=== PATIENT | male | born 1990 | race American Indian/Alaskan Native ===

== ENCOUNTER 2020-12-28 16:46 | Emergency (ER) | payer SELFPAY ==
[2020-12-28 17:09] VITALS: BP 116/61
--- NOTE | 2020-12-28 19:27 | Emergency Department Report ---
- General Chief Complaint: Dyspnea/Respdistress Stated Complaint: ASTHMA Time Seen by Provider: 12/28/20 18:30 Source: patient Mode of arrival: Ambulatory Limitations: No Limitations - History of Present Illness Initial Comments: Patient is a 29-year-old male presents emergency room complaints of URI symptoms that began yesterday. He has associated cough with clear mucus production, chest tightness, occasional wheezing, rhinorrhea, nasal congestion. He denies any shortness of breath, fever, nausea, vomiting, diarrhea, sore throat, ear pain. He denies any known sick contacts or recent travel. He has a past medical history of asthma and states he is out of his inhaler. He denies any allergies to medications. He is a smoker. - Related Data Previous Rx's Medication Instructions Recorded Last Taken Type Albuterol Sulfate [Proventil Hfa] 1 puff IH TID PRN #1 hfa.aer.ad 12/28/20 Unknown Rx Fluticasone [Flonase] 1 spray NS QDAY #1 bottle 12/28/20 Unknown Rx Loratadine 10 mg PO DAILY #30 tablet 12/28/20 Unknown Rx Prednisone [predniSONE 10 mg 10 mg PO .TAPER #1 tab.ds.pk 12/28/20 Unknown Rx (6-Day Pack, 21 Tabs)] guaiFENesin ER [Mucinex ER] 600 mg PO Q12H #14 tablet.er 12/28/20 Unknown Rx Allergies Allergy/AdvReac Type Severity Reaction Status Date / Time No Known Allergies Allergy Unverified 12/28/20 17:06 ED Review of Systems ROS: Stated complaint: ASTHMA Other details as noted in HPI Comment: All other systems reviewed and negative ED Past Medical Hx - Past Medical History Previous Medical History?: Yes Hx Asthma: Yes - Medications Home Medications: Home Medications Medication Instructions Recorded Confirmed Last Taken Type Albuterol Sulfate [Proventil Hfa] 1 puff IH TID PRN #1 hfa.aer.ad 12/28/20 Unknown Rx Fluticasone [Flonase] 1 spray NS QDAY #1 bottle 12/28/20 Unknown Rx Loratadine 10 mg PO DAILY #30 tablet 12/28/20 Unknown Rx Prednisone [predniSONE 10 mg 10 mg PO .TAPER #1 tab.ds.pk 12/28/20 Unknown Rx (6-Day Pack, 21 Tabs)] guaiFENesin ER [Mucinex ER] 600 mg PO Q12H #14 tablet.er 12/28/20 Unknown Rx ED Physical Exam - General Limitations: No Limitations General appearance: alert, in no apparent distress - Head Head exam: Present: atraumatic, normocephalic - Eye Eye exam: Present: normal appearance - ENT ENT exam: Present: normal orophraynx, mucous membranes moist, TM's normal bilaterally, normal external ear exam, other (pale boggy turbinates with clear nasal drainage) - Respiratory Respiratory exam: Present: normal lung sounds bilaterally. Absent: respiratory distress, wheezes, rales, rhonchi, stridor, chest wall tenderness, accessory muscle use, decreased breath sounds, prolonged expiratory - Cardiovascular Cardiovascular Exam: Present: regular rate, normal rhythm, normal heart sounds. Absent: systolic murmur, diastolic murmur, rubs, gallop - Neurological Exam Neurological exam: Present: alert, oriented X3 - Psychiatric Psychiatric exam: Present: normal affect, normal mood - Skin Skin exam: Present: warm, dry, intact ED Course Vital Signs 12/28/20 17:08 Temperature 97.9 F Pulse Rate 70 Respiratory 20 Rate Blood Pressure 116/61 O2 Sat by Pulse 99 Oximetry ED Medical Decision Making - Radiology Data Radiology results: report reviewed Ordering Physician: MARITZA ROYAL Date of Service: 12/28/20 Procedure(s): XR chest routine 2V Accession Number(s): [id number] cc: MARITZA ROYAL Fluoro Time In Minutes: CHEST 2 VIEWS INDICATION / CLINICAL INFORMATION: cough, chest congestion, hx of asthma. COMPARISON: None available. FINDINGS: SUPPORT DEVICES: None. HEART / MEDIASTINUM: No significant abnormality. LUNGS / PLEURA: No significant pulmonary or pleural abnormality. No pneumothorax. ADDITIONAL FINDINGS: No significant additional findings. IMPRESSION: 1. No acute findings. Signer Name: Diego Rubio MD Signed: 12/28/2020 7:30 PM Workstation Name: [id number] Transcribed By: TL Dictated By: Diego Rubio MD Electronically Authenticated By: Diego Rubio MD Signed Date/Time: 12/28/201929 DD/ 29 TD/TT: Print - Medical Decision Making Patient is a 29-year-old male presents emergency room complaints of URI symptoms that began yesterday. He has associated cough with clear mucus production, chest tightness, occasional wheezing, rhinorrhea, nasal congestion. He denies any shortness of breath, fever, nausea, vomiting, diarrhea, sore throat, ear pain. He denies any known sick contacts or recent travel. He has a past medical history of asthma and states he is out of his inhaler. He denies any allergies to medications. He is a smoker. Vitals are normal. On exam breath sounds are clear bilaterally, no wheezing, no rales, no rhonchi, no respiratory distress, no excessive muscle use. Chest x-ray: 1. No acute findings. Patient has no clinical signs of active asthma exacerbation. Patient given prescription for medications. He has no clinical signs of bacterial pneumonia or bacterial bronchitis. Advised patient Please take medication as prescribed. Follow-up with a primary care doctor for examination. Recommend for you to get outpatient COVID-19 testing and quarantine as necessary. Return to emergency room for any new or worsening symptoms. Critical care attestation.: If time is entered above; I have spent that time in minutes in the direct care of this critically ill patient, excluding procedure time. ED Disposition Clinical Impression: Viral URI, History of asthma Allergic rhinitis Qualifiers: Allergic rhinitis trigger: unspecified Allergic rhinitis seasonality: unspecified Qualified Code(s): J30.9 - Allergic rhinitis, unspecified Disposition: DC-01 TO HOME OR SELFCARE Is pt being admited?: No Does the pt Need Aspirin: No Condition: Stable Instructions: Upper Respiratory Infection, Adult, [id number], Allergic Rhinitis, Adult Additional Instructions: Please take medication as prescribed. Follow-up with a primary care doctor for examination. Recommend for you to get outpatient COVID-19 testing and quarantine as necessary. Return to emergency room for any new or worsening symptoms. Prescriptions: Fluticasone [Flonase] 1 spray NS QDAY #1 bottle Loratadine 10 mg PO DAILY #30 tablet guaiFENesin ER [Mucinex ER] 600 mg PO Q12H #14 tablet.er Prednisone [predniSONE 10 mg (6-Day Pack, 21 Tabs)] 10 mg PO .TAPER #1 tab.ds.pk Albuterol Sulfate [Proventil Hfa] 1 puff IH TID PRN #1 hfa.aer.ad PRN Reason: shortness of breath/wheezing Referrals: KITTY CASTELLANOS MD [Staff Physician] - 2-3 Days [facility] [Provider Group] - 2-3 Days Forms: Work/School Release Form(ED) Time of Disposition: 19:42 Print Language: TAJIK
--- NOTE | 2020-12-28 19:35 | XRay Report ---
CHEST 2 VIEWS INDICATION / CLINICAL INFORMATION: cough, chest congestion, hx of asthma. COMPARISON: None available. FINDINGS: SUPPORT DEVICES: None. HEART / MEDIASTINUM: No significant abnormality. LUNGS / PLEURA: No significant pulmonary or pleural abnormality. No pneumothorax. ADDITIONAL FINDINGS: No significant additional findings. IMPRESSION: 1. No acute findings. Signer Name: Diego Rubio MD Signed: 12/28/2020 7:30 PM Workstation Name: [id number]
== END 2020-12-28 20:20 | disposition home or self-care (01) ==
LOC: ED 16:46
DX: J06.9 Acute upper respiratory infection, unspecified (principal); B97.89 Other viral agents as the cause of diseases classified elsewhere; J30.9 Allergic rhinitis, unspecified; Z79.899 Other long term (current) drug therapy
CPT/HCPCS: 71046; 99283